=== PATIENT | female | born 1970 | race Two or more races ===

== ENCOUNTER 2024-08-06 19:57 | Emergency (ER) | payer MEDICAID, OTHER ==
[~2024-08-06] VITALS: Ht 165.1 cm; Wt 79.5 kg
[2024-08-06] MEDS: DexAMETHasone SOD PHOS 10MG/1ML VIAL INJ IM ONE (21:15)
[2024-08-06] MEDS: KETOROLAC TROMETH 60MG/2ML VIAL IM ONE (21:15)
[2024-08-06] MEDS: HYDROcodone-ACET 5/325MG TAB PO ONE (21:15)
[2024-08-06 21:21] VITALS: BP 132/77; PULSE 72; RESP 16; TEMP 98.7; O2SAT 96
--- NOTE | 2024-08-06 21:41 | DVH ---
EXAM: XY CERVICAL SPINE 3V INDICATION: Cervical radiculopathy COMPARISON: None TECHNIQUE: 3 views of the cervical spine were obtained. Findings: There is no evidence of an acute fracture, spondylolysis, or spondylolisthesis. Mild degeneratuive ch anges of the cervical spine. The vertebral body heights and disc spaces are well-maintained. Straightening of the cervical lordosi s. No blastic or lytic lesions are appreciated. No radiopaque foreign bodies. Mild thickening of the retropharyngeal soft tissues. Impression: 1. No acute osseous abnormality. 2. Mild thickening of the retropharyngeal soft tissues. Consider further evaluation with contrast enh anced CT neck as clinically indicated. 3. Mild degenerative changes of the cervical spine. 4. Straightening of the cervical lordosis which may be positional versus muscle spasm.
[2024-08-06] MEDS ORDERED: IBUP-1455 PO (23:30)
[2024-08-06] MEDS ORDERED: HYDR-4798 PO (23:30)
--- NOTE | 2024-08-06 23:31 | ED.PDOC ---
Back pain HPI HPI Comments This patient is a pleasant 54-year-old female who arrives to the ED today with complaints of neck pain that radiates towards her right shoulder and arm for the past few days. Patient denies any traumatic events. Patient states the symptoms came on when she woke up in the morning and has been fairly unrelenting. Patient denies any history of cervical spine or shoulder concerns. Patient denies any fever nausea or vomiting. Vital signs were stable on arrival. Chief Complaint: Neck Pain Time Seen by MD: 20:06 Primary Care Provider: Dr. Velazquez Reviewed Notes: Nurses Notes Allergies: Coded Allergies: NO KNOWN ALLERGIES (Unverified , 08/06/24) Information Source: Patient, Spouse Mode of Arrival: Ambulatory Timing: Days Duration: Since onset Location of Back pain: (B) Cervical Severity: Severe Prehospital treatment: None Quality: Aching, Cramping, Sharp Onset: Spontaneous History of: None Past Medical History PAST MEDICAL HISTORY: Denies Surgical History: Denies all surgeries [employer] ANALYST History: No Pertinent [employer] ANALYST History Family History Family History: Reviewed,noncontributory to illness, No family hx of Cancer, No family hx of DM, No family hx of Heart darren, No family hx of HTN, No family hx ofKidney darren, No family hx of Liver darren, No family hx of Lung darren, No family hx of Stroke Social History Alcohol: Denies ETOH Use Drugs: Denies Drug Use Lives In: Home Constitutional: denies: chills, diaphoresis, fatigue, fever, malaise, sweats, weakness, others EENTM: denies: blurred vision, double vision, ear bleeding, ear discharge, ear drainage, ear pain, ear ringing, eye pain, eye redness, hearing loss, mouth pain, mouth swelling, nasal discharge, nose bleeding, nose congestion, nose pain, photophobia, tearing, throat pain, throat swelling, voice changes, others Respiratory: denies: cough, hemoptysis, orthopnea, SOB at rest, shortness of breath, SOB with excertion, stridor, wheezing, others Cardiovascular: denies: chest pain, dizzy spells, diaphoresis, Dyspnea on exertion, edema, irregular heart beat, left arm pain, lightheadedness, palpitations, PND, syncope, others Gastrointestinal: denies: abdomen distended, abdominal pain, blood streaked bowels, constipated, diarrhea, dysphagia, difficulty swallowing, hematemesis, melena, nausea, poor appetite, poor fluid intake, rectal bleeding, rectal pain, vomiting, others Genitourinary: denies: abnormal vagina bleeding, burning, dyspareunia, dysuria, flank pain, frequency, hematuria, incontinence, pain, , vagina discharge, urgency, others Neurological: denies: dizziness, fainting, headache, left sided numbness, left sided weakness, numbness, paresthesia, pre-existing deficit, right sided numbness, right sided weakness, seizure, speech problems, tingling, tremors, weakness, others Musculoskeletal: reports: neck pain, others (Right shoulder pain); denies: back pain, gout, joint pain, joint swelling, muscle pain, muscle stiffness Integumetry: denies: bruises, change in color, change in hair/nails, dryness, laceration, lesions, lumps, rash, wounds, others Allergic/Immunocompromised: denies: Difficulty Healing, Frequent Infections, Hives, Itching, others Hematologic/Lymphatic: denies: anemia, blood clots, easy bleeding, easy bruising, swollen glands, others Endocrine: denies: excessive hunger, excessive sweating, excessive thirst, excessive urination, flushing, intolerance to cold, intolerance to heat, unexplained weight gain, unexplained weight loss, others Psychiatric: denies: anxiety, bipolar disorder, depression, hopeless, panic disorder, schizophrenia, sleepless, suicidal, others Physical Exam General Appearance: Moderate Distress (Patient is in moderate distress due to neck and shoulder pain concerns.), Normal HEENT: Normal ENT Inspection, Pharynx Normal, TMs Normal Neck: Other (Diffuse bilateral posterior tenderness to palpation throughout the cervical spine. Straightening appreciated. No step-offs noted. Moderate hypertonicity appreciated.) Respiratory: Chest Non-Tender, Lungs Clear, No Accessory Muscle Use, No Respiratory Distress, Normal Breath Sounds Cardiovascular: No Edema, No JVD, No Murmur, No Gallop, Normal Peripheral Pulses, Regular Rate/Rhythm Breast Exam: Deferred Gastrointestinal: No Organomegaly, Non Tender, No Pulsatile Mass, Normal Bowel Sounds, Soft Genitalia: Deferred Pelvic: Deferred Rectal: Deferred Extremities: Other (Right shoulder evaluation was unremarkable. No physical signs of trauma or derangement. Patient states the pain moves through the shoulder girdle and through the lateral aspect of the arm. Moderate reduced range of motion.) Neurologic: Alert, director retirement II-XII nml as Tested, No Motor Deficits, Normal Affect, Normal Mood, No Sensory Deficits Cerebellar Function: Normal Reflexes: Normal Skin: Dry, Normal Color, Warm Lymphatic: No Adenopathy Was a procedure done? Was a procedure done?: No Back Pain Differential Dx Differential Diagnosis: Other (Cervical vertebrae fracture, cervical muscle strain, degenerative disc disease of the cervical spine, cervical radiculopathy) X-Ray, Labs, Meds, VS Vital Signs Date Time Temp Pulse Resp B/P (MAP) Pulse Ox O2 Delivery O2 Flow Rate FiO2 08/06/24 21:21 98.7 72 16 132/77 (95) 96 98.7 08/06/24 21:21 72 16 96 Room Air 08/06/24 20:06 97.7 76 18 122/75 (91) 97 Current Medications Medications (Trade) Dose Ordered Sig/Carmelina Route Start Time Stop Time Status Last Admin Dexamethasone Sodium Phosphate (Decadron Injection) 10 mg ONCE ONCE IM 08/06/24 20:30 08/06/24 20:31 DC 08/06/24 21:15 Ketorolac Tromethamine (Toradol Injection) 30 mg ONCE ONCE IM 08/06/24 20:30 08/06/24 20:31 DC 08/06/24 21:15 Acetaminophen/ Hydrocodone Bitart ([place] 5/325MG Tab) 1 tab ONCE ONCE PO 08/06/24 20:30 08/06/24 20:31 DC 08/06/24 21:15 X-Ray, Labs, Meds, VS Comment All studies performed the ED were evaluated by me personally. Imaging studies confirmed a degenerative disc disease concern in the cervical spine. Advised patient that this is usually the culprit for neuropathic concerns in the upper extremities. Advised patient utilize pain medication as needed as well as ice therapy. Patient should follow up with primary care provider for continued evaluation and possible orthopedic referral. Time of 1ST Reevaluation: 23:28 Reevaluation 1ST: Improved Consultation: PCP, Other (Orthopedist) Patient Education/Counseling: Diagnosis, Treatment Family Education/Counseling: Diagnosis, Treatment Departure 1 Departure Time of Disposition: 23:29 Impression: Primary Impression: Degenerative joint disease of cervical spine Additional Impression: Cervical radiculopathy Disposition: 01 HOME / SELF CARE / HOMELESS Condition: Stable Additional Instructions: Advised patient utilize medication as needed for symptomatic relief as well as ice therapy. Advised patient to utilize all passive tools to rectify her situation including traction therapy, injections and physical therapy prior to any surgical intervention. If continued, patient will need to follow up with primary care provider for orthopedic referral and evaluation. e-Prescriptions Hydrocodone-Acetaminophen (Hydrocodone Bitartrate/AC 10-325 mg) 1 Tab Tab 1 TAB PO Q8HP PRN, #20 TAB Prov: JUSTIN HENDRICKS PAC 08/06/24 Ibuprofen Micronized (Ibuprofen) 800 Mg Tab 800 MG PO Q8HP PRN, #20 TAB Prov: JUSTIN HENDRICKS PAC 08/06/24 Discharged With: Self, Friend Critical Care Note Critical Care Time?: No Stability Stability form required: No Heart Score Heart Score: Heart Score Response (Comments) Value History N/A 0 EKG N/A 0 Age N/A 0 Risk Factors N/A 0 Troponin N/A 0 Total 0 JUSTIN HENDRICKS PAC Aug 06, 2024 23:31
== END 2024-08-06 23:42 | disposition home or self-care (01) ==
LOC: ER 19:57
DX: M47.22 Other spondylosis with radiculopathy, cervical region (principal)
CPT/HCPCS: 72040; 96372; 99284; J1100; J1885